=== PATIENT | male | born 1940 | race Caucasian/White ===

== ENCOUNTER 2016-08-09 07:11 | Outpatient (CLI) | payer MEDICARE ==
[2016-08-09 08:06] LABS: Anion Gap 19 mmol/L (10-20); BUN (Urea Nitrogen) 31 mg/dL (8.4-25.7); Calc. Creatinine Clearance 0 mL/min (70-130); Calcium 8.6 mg/dL (7.8-10.44); Carbon Dioxide 28 mmol/L (23-31); Chloride 94 mmol/L (98-107); Estimated GFR-MDRD 23; Glucose 121 mg/dL (83-110); Potassium 3.4 mmol/L (3.5-5.1); Sodium 138 mmol/L (136-145)
== END 2016-08-09 07:12 | disposition home or self-care (01) ==
LOC: MADLAB 07:11
PROVIDERS: ATTEND Internal Medicine Nephrology
DX: N18.3 Chronic kidney disease, stage 3 (moderate) (principal)
CPT/HCPCS: 36415; 80048

== ENCOUNTER 2016-08-19 08:00 | Outpatient (CLI) | payer MEDICARE ==
[2016-08-19 09:06] LABS: Anion Gap 13 mmol/L (10-20); BUN (Urea Nitrogen) 33 mg/dL (8.4-25.7); Calc. Creatinine Clearance 0 mL/min (70-130); Carbon Dioxide 34 mmol/L (23-31); Chloride 98 mmol/L (98-107); Estimated GFR-MDRD 32; Glucose 113 mg/dL (83-110); Potassium 4.1 mmol/L (3.5-5.1); Sodium 141 mmol/L (136-145)
== END 2016-08-19 08:01 | disposition home or self-care (01) ==
LOC: MADLAB 08:00
PROVIDERS: ATTEND Internal Medicine Nephrology
DX: N18.9 Chronic kidney disease, unspecified (principal)
CPT/HCPCS: 36415; 80048

== ENCOUNTER 2016-08-24 07:02 | Outpatient (CLI) | payer MEDICARE ==
[2016-08-24 07:24] LABS: #Basophils 0.1 thou/uL (0.0-0.2); #Eosinphils 0.3 thou/uL (0.0-0.7); #Lymphocytes 2.2 thou/uL (1.20-3.40); #Monocytes 1.3 thou/uL (0.11-0.59); #Neutrophils 5.6 thou/uL (1.40-6.50); %Basophils 1.2 % (0.0-1.0); %Eosinophils 2.7 % (0.0-10.0); %Lymphocytes 23.3 % (21.0-51.0); %Monocytes 13.5 % (0.0-10.0); %Neutrophils 59.3 % (42.0-75.0); Hemoglobin 12.5 g/dL (14.0-18.0); Mean Corpuscular HGB CONC 32.4 g/dL (32.0-36.0); Mean Corpuscular Hemoglobin 30.1 pg (27.0-31.0); Mean Platelet Volume 7.2 fL (7.4-10.4); Platelet Count 181 thou/uL (130-400); RBC Distribution Width 13.2 % (11.5-14.5); Red Blood Cell (RBC) Count 4.16 mill/uL (4.70-6.10); White Blood Cell (WBC) Count 9.4 thou/uL (4.8-10.8)
[2016-08-24 07:34] LABS: Hemoglobin A1c 6.7 % (4.0-6.0)
[2016-08-24 08:32] LABS: ALT (SGPT) 10 U/L (0-55); AST (SGOT) 14 U/L (5-34); Albumin 3.7 g/dL (3.4-4.8); Alkaline Phosphatase 97 U/L (40-150); Anion Gap 16 mmol/L (10-20); BUN (Urea Nitrogen) 30 mg/dL (8.4-25.7); Bilirubin, Direct 0.2 mg/dL (0.1-0.3); Bilirubin, Total 0.6 mg/dL (0.2-1.2); Calc. Creatinine Clearance 0 mL/min (70-130); Calcium 8.9 mg/dL (7.8-10.44); Carbon Dioxide 30 mmol/L (23-31); Cardiac Risk 3.6 (Less than 4.5); Chloride 97 mmol/L (98-107); Cholesterol 164 mg/dL (< 200 Desired); Estimated GFR-MDRD 35; Glucose 83 mg/dL (83-110); HDL Cholesterol 45 mg/dL (>60 Neg Risk); LDL Cholesterol, Calculated 100 mg/dL; Potassium 3.9 mmol/L (3.5-5.1); Protein, Total 6.7 g/dL (5.8-8.1); Sodium 139 mmol/L (136-145); Triglycerides 93 mg/dL (Less than 150)
== END 2016-08-24 07:03 ==
LOC: MADLABBHPM 07:02
PROVIDERS: ATTEND Internal Medicine Nephrology
DX: E11.9 Type 2 diabetes mellitus without complications (principal)
CPT/HCPCS: 36415; 80048; 80061; 80076; 83036; 85025

== ENCOUNTER 2016-10-31 11:36 | Emergency (ER) | payer MEDICARE ==
[~2016-10-31 11:36] MED LIST: Sodium Chloride 0.9% 1,000 ML BAG ONE
--- NOTE | 2016-10-31 12:43 | CT ---
NONCONTRAST CT OF THE BRAIN: Date: 10/31/16 INDICATION: Altered mental status. FINDINGS: There are prominent bilateral mastoid effusions. There is mild mucosal thickening within the ethmoid air cells. The skull is intact. No acute infarct, hemorrhage, or hydrocephalus is present. There i s mild generalized cerebral and cerebellar atrophy. There is a 1.3 cm extra-axial lesion overlying t he right frontal lobe which may reflect a noncalcified extra-axial meningioma. This does not have th e appearance of an extra-axial hemorrhage. IMPRESSION: 1. Bilateral mastoid effusions. 2. No acute intracranial abnormality. 3. Extra-axial soft tissue density overlying the right frontal lobe is suspicious for meningioma. F ollow-up MRI of the brain with and without contrast may be helpful for additional characterization. POS: [facility]
--- NOTE | 2016-10-31 12:44 | RAD ---
AP VIEW OF CHEST: Date: 10/31/16 INDICATION: Altered mental status. COMPARISON: Two views of chest dated 11/11/11. FINDINGS: There is stable cardiomegaly. There is partial visualized of ACDF of the lower cervical spine. Lungs are clear. No pleural effusion or pneumothorax evident. No acute osseous abnormality is evident. IMPRESSION: No acute abnormality. Stable cardiomegaly. POS: [facility]
--- NOTE | 2016-10-31 12:48 | RAD ---
3 VIEWS OF THE RIGHT KNEE: Date: 10/31/16 INDICATION: Postop knee. COMPARISON: None. FINDINGS: There is a right total knee prosthesis that projects in the expected position. There are surgical sk in jennifer overlying the anterior midline of the right knee. There are vascular calcifications in po sterior right knee. IMPRESSION: Right total knee prosthesis without overt evidence of complication. POS: [facility]
[2016-10-31 13:07] LABS: ALT (SGPT) 16 U/L (0-55); AST (SGOT) 18 U/L (5-34); Albumin 3.4 g/dL (3.4-4.8); Alkaline Phosphatase 86 U/L (40-150); Anion Gap 16 mmol/L (10-20); BUN (Urea Nitrogen) 54 mg/dL (8.4-25.7); Bilirubin, Total 0.7 mg/dL (0.2-1.2); Calc. Creatinine Clearance 0 mL/min (70-130); Calcium 8.6 mg/dL (7.8-10.44); Carbon Dioxide 26 mmol/L (23-31); Chloride 103 mmol/L (98-107); Estimated GFR-MDRD 13; Glucose 170 mg/dL (83-110); Potassium 4.8 mmol/L (3.5-5.1); Protein, Total 6.4 g/dL (5.8-8.1); Sodium 140 mmol/L (136-145)
[2016-10-31 13:09] LABS: CKMB 6.2 ng/mL (0-6.6); Troponin I Less than 0.010 ng/mL (< 0.028)
[2016-10-31 13:12] LABS: Band 1 % (5-11); Eosinophils 3 % (0-10); Hemoglobin 10.6 g/dL (14.0-18.0); Lymphocytes 18 % (21-51); MDiff Complete? YES; Mean Corpuscular HGB CONC 33.1 g/dL (32.0-36.0); Mean Corpuscular Hemoglobin 31.1 pg (27.0-31.0); Mean Corpuscular Volume 93.9 fl (80.0-94.0); Mean Platelet Volume 6.7 fL (7.4-10.4); Monocytes 16 % (0-10); Neutrophil 62 % (42-75); PLT Morphology Comment Appears Adequate; Platelet Count 297 thou/uL (130-400); RBC Distribution Width 13.5 % (11.5-14.5); White Blood Cell (WBC) Count 10.8 thou/uL (4.8-10.8)
== END 2016-10-31 14:22 | disposition short-term general hospital (02) ==
LOC: MADERS 11:36
DX: R41.82 Altered mental status, unspecified (principal); I12.9 Hypertensive chronic kidney disease with stage 1 through stage 4 chronic kidney disease, or unspecified chronic kidney disease; E11.22 Type 2 diabetes mellitus with diabetic chronic kidney disease; N18.3 Chronic kidney disease, stage 3 (moderate); N17.9 Acute kidney failure, unspecified; M19.90 Unspecified osteoarthritis, unspecified site; G89.29 Other chronic pain; E66.9 Obesity, unspecified; I25.10 Atherosclerotic heart disease of native coronary artery without angina pectoris; I48.91 Unspecified atrial fibrillation; E78.5 Hyperlipidemia, unspecified; J45.909 Unspecified asthma, uncomplicated; Z79.899 Other long term (current) drug therapy; Z79.891 Long term (current) use of opiate analgesic
CPT/HCPCS: 36415; 70450; 71010; 80053; 82553; 84484; 85025; 93005; 96360; J7050

== ENCOUNTER 2016-11-07 07:29 | Outpatient (CLI) | payer MEDICARE ==
[2016-11-07 08:45] LABS: Anion Gap 16 mmol/L (10-20); BUN (Urea Nitrogen) 23 mg/dL (8.4-25.7); Calc. Creatinine Clearance 0 mL/min (70-130); Calcium 8.7 mg/dL (7.8-10.44); Carbon Dioxide 28 mmol/L (23-31); Chloride 103 mmol/L (98-107); Estimated GFR-MDRD 41; Glucose 112 mg/dL (83-110); Potassium 4.1 mmol/L (3.5-5.1); Sodium 143 mmol/L (136-145)
== END 2016-11-07 07:30 | disposition home or self-care (01) ==
LOC: MADLAB 07:29
PROVIDERS: ATTEND Internal Medicine Nephrology
DX: N18.4 Chronic kidney disease, stage 4 (severe) (principal); D63.1 Anemia in chronic kidney disease; R80.9 Proteinuria, unspecified
CPT/HCPCS: 36415; 80048

== ENCOUNTER 2016-11-08 13:26 | Outpatient (CLI) | payer MEDICARE ==
[2016-11-08 13:41] LABS: Hemoglobin 10.7 g/dL (14.0-18.0)
[2016-11-08 17:31] LABS: Creatinine, Urine 92.94 mg/dL (63-166); Protein, Urine Random Quant Less than 10 mg/dL
== END 2016-11-08 13:27 | disposition home or self-care (01) ==
LOC: MADLAB 13:26
PROVIDERS: ATTEND Internal Medicine Nephrology
DX: N18.4 Chronic kidney disease, stage 4 (severe) (principal); D63.1 Anemia in chronic kidney disease; R80.9 Proteinuria, unspecified
CPT/HCPCS: 36415; 82570; 84156; 85014; 85018

== ENCOUNTER 2017-01-30 07:11 | Outpatient (CLI) | payer MEDICARE ==
[2017-01-30 07:49] LABS: Hemoglobin 12.3 g/dL (14.0-18.0); Mean Corpuscular HGB CONC 33.2 g/dL (32.0-36.0); Mean Corpuscular Hemoglobin 30.7 pg (27.0-31.0); Mean Corpuscular Volume 92.5 fl (80.0-94.0); Platelet Count 195 thou/uL (130-400); RBC Distribution Width 12.9 % (11.5-14.5); White Blood Cell (WBC) Count 7.9 thou/uL (4.8-10.8)
[2017-01-30 07:56] LABS: Anion Gap 13 mmol/L (10-20); BUN (Urea Nitrogen) 17 mg/dL (8.4-25.7); Calc. Creatinine Clearance 0 mL/min (70-130); Calcium 8.9 mg/dL (7.8-10.44); Carbon Dioxide 31 mmol/L (23-31); Chloride 98 mmol/L (98-107); Estimated GFR-MDRD 43; Glucose 159 mg/dL (83-110); Potassium 3.4 mmol/L (3.5-5.1); Sodium 139 mmol/L (136-145)
[2017-01-30 09:10] LABS: Band 6 % (5-11); Eosinophils 4 % (0-10); Lymphocytes 21 % (21-51); Metamyelocyte 2 % (0-0); Monocytes 4 % (0-10); Promyelocytes 1 % (0-0)
== END 2017-01-30 07:12 | disposition home or self-care (01) ==
LOC: MADLABBHPM 07:11
PROVIDERS: ATTEND Family Medicine
DX: I10 Essential (primary) hypertension (principal); D64.9 Anemia, unspecified
CPT/HCPCS: 36415; 80048; 85025

== ENCOUNTER 2017-11-22 12:27 | Inpatient (IN) | payer MEDICARE ==
[2017-11-27] MEDS ORDERED: Nitroglycerin 0.4 MG TAB (25 Tab Bottle) SL PRN (18:34)
[2017-11-27] MEDS ORDERED: Acetaminophen 325 MG TAB PO PRN (18:34)
[2017-11-27] MEDS ORDERED: Dextrose 5% in Water 1,000 ML IV PRN (18:38)
[2017-11-27] MEDS ORDERED: Dextrose 50% Abboject 50 ML SYRINGE SLOW IVP PRN (18:38)
[2017-11-27] MEDS: HYDROcodone/Acetaminophen 10/325 mg Tablet PO PRN (19:52)
[2017-11-27] MEDS: Gabapentin 300 MG CAP PO SCH (21:37)
[2017-11-27] MEDS: Flecainide 50 MG TAB PO SCH (21:38)
[2017-11-27] MEDS: Magnesium Oxide 400 MG TAB PO SCH (21:38)
[2017-11-27] MEDS: Atorvastatin Calcium 10 MG TAB PO SCH ×2 (21:40→21:54)
[2017-11-27] MEDS: HumaLOG 300 UNITS/3 ML VIAL SC PRN (21:43)
[2017-11-27] MEDS: Acetaminophen 325 MG TAB PO PRN (21:52)
--- NOTE | 2017-11-28 00:33 | HP ---
Admitted to [facility] on 11/27/2017. CHIEF COMPLAINT: Weakness. DATE OF ADMISSION: 11/27/2017 Admitted to [facility] on 11/27/2017. CHIEF COMPLAINT: Weakness. HISTORY OF PRESENT ILLNESS: The patient is a 77-year-old white male who has a history of type 2 diab etes, hypertension, coronary artery disease for which he has had stents and presently asymptomatic, o bstructive sleep apnea, venous insufficiency, chronic kidney disease, diabetic neuropathy, paroxysmal atrial fibrillation, and pacemaker insertion. He also has a history of severe spondylosis of his jason mbar spine, for which he has been on chronic pain medication. He has undergone a lumbar diskectomy i n 2009. He has also undergone numerous epidural steroid injections. Eventually, he has got where ey were no longer helping. He was doing reasonably well in controlling his pain with morphine extend ed release and occasional morphine immediate release for the pain. Recently, he had become progressi vely weaker in his legs and was falling. He says his legs would just give out with him. He was take n to the hospital at [facility] and admitted there on 11/17/2017 for another fall and weakness in his legs. His said he had fallen and he just could not move his legs. At the [facility], he was evaluated and initially underwent CT scan of the spine, which showed spondylos is of the spine with probable central stenosis. He later underwent myelogram of the spine. The CT m yelogram of the cervical spine done on 11/23/2017 showed cervical spondylosis, multilevel degenerativ e disk disease, and facet osteoarthritis. He had had a previous anterior cervical diskectomy and fus ion at C5, C6, and C7. He had central disk herniation at C4-C5 with some displacement of the spinal cord. The thoracic CT myelogram showed no significant spinal stenosis. The lumbar CT myelogram show ed severe central spinal canal stenosis, particularly at L3-L4. There was also moderate neural paulina inal stenosis bilaterally at L3-L4, L4-L5, and L5-S1. The patient was seen in consultation by Dr. Lindy Abad, neurosurgeon, who felt like that the weakness in his legs and the falls were seconda ry to his severe L3-L4 spinal stenosis. After discussion with the patient and his agreement, the pat ient underwent a spinal decompression at the L3-L4 level with a complete laminectomy done on 11/25/19. The patient's postop course was unremarkable and he has been doing better since the surgery. He has not get up and walk much. He says his pain has been pretty reasonably controlled. During his h ospitalization, he did have some decline in his renal function that improved. The patient was transf erred to [facility] to extended care for Physical Therapy and Occupational Therapy on the late afternoon of 11/27/2017. I was able to interview the patient that afternoon and he was able to give me a good history of what has happened. He says his legs are not numb, his legs are not hurting. He has some pain in the back, but it is controllable. His extended-release morphine has been stopped a nd he has been given Tylenol and hydrocodone with acetaminophen 10/325 to use one every 6 hours for p ain, and also was given Zanaflex 4 mg to use every 6 hours if needed for pain. PAST MEDICAL HISTORY: Coronary artery disease, the patient underwent heart catheterization in 2005 a nd again in 2011. He has had a history of LAD blockage 100%, RCA blockage at 40%. The patient had a stent to the RCA in 12/2011. He was re-studied and had triple-vessel disease. He had a stent place d in the proximal and mid RCA, stent placed to the distal RCA. Repeat catheterization in 09/2014 pierre wed patent stents to the RCA. The patient has been asymptomatic in regard to his coronary artery dis ease. The patient has renal artery stenosis and chronic kidney disease, stage 3. The patient has pa roxysmal atrial fibrillation for which he has been on sotalol and Xarelto. The patient's left ventri cular function has been normal. He has hyperlipidemia, hypertension, sleep apnea. The patient is un able to tolerate CPAP and uses O2 by nasal cannula at night. He has severe generalized osteoarthriti s, diabetes type 2 that is controlled. The patient has a history of asbestos exposure; cervical spon dylosis with cervical radiculopathy for which he underwent an anterior diskectomy at the C5, C6, and C7 levels and fusion in 2005; left total knee replacement in 2014; right total knee replacement in ; bilateral inguinal hernia repairs; colonoscopy in 2009 that was normal. PRESENT MEDICATIONS: Acarbose 25 mg before meals; acetaminophen 325 mg two every 4 hours as needed; furosemide 40 mg daily; insulin lispro by sliding scale, 1 unit for glucose greater than 150, 3 units for glucose greater than 200, 5 units for glucose greater than 250, 7 units if glucose greater than 300, 8 units for glucose greater than 349; gabapentin 600 mg t.i.d.; glipizide 5 mg b.i.d.; isosorbid e mononitrate 10 mg daily; flecainide 100 mg b.i.d.; folic acid 1 daily; magnesium oxide 400 mg at be dtime; metoprolol succinate SR 100 mg daily; nitroglycerin sublingual 0.4 mg p.r.n. chest pain; prava statin 40 mg daily; Ranexa 500 mg b.i.d.; Victoza 18 mg daily subcutaneously; vitamin D 1000 units da jones; valsartan 40 mg daily. The patient was on morphine extended release, which has been stopped; an d morphine IR, which has been stopped. ALLERGIES: No known allergies. REVIEW OF SYSTEMS: The patient said he has not had any fever. He has had no recent weight gain or l oss. Head and Neck: No complaints. Pulmonary: No shortness of breath. Cardiovascular: The patie nt said he has had no chest pain. At times, he has just a little soreness in his chest that he think s just from the muscles. Gastrointestinal: No nausea or vomiting. His bowels are working well. Ge nitourinary: No complaint. Musculoskeletal: The patient denies any other weakness in his leg. He can move these better, but has not been up much or walking much. He denies any numbness. HABITS: Alcohol, none. Tobacco, the patient smoked years ago, but has stopped. SOCIAL HISTORY: The patient is and lives with his . REVIEW OF ADL: Prior to this hospitalization, he had been independent of his ADLs and instrumental A DLs. CODE STATUS: FULL CODE. PHYSICAL EXAMINATION: GENERAL: A pleasant 77-year-old white male who is awake, alert, oriented x3, and appears comfortable in no distress. His height is 71 inches. His weight is 309. VITAL SIGNS: Temperature 97.5, pulse 60, respirations 24, O2 sat 93% on 2 liters, blood pressure 159 /69. HEAD: Normocephalic. EYES: Pupils are equal, round, and reactive. EARS: TMs are clear. NOSE: Normal. MOUTH AND THROAT: Normal. NECK: Carotids are equal and strong. No bruits. LUNGS: Clear. HEART: Regular rate. No murmurs. ABDOMEN: Obese. There is no organomegaly nor areas of tenderness. BACK: The patient has an incision that is well approximated with jennifer in the midline of the lumba r spine. There is no drainage or surrounding redness. EXTREMITIES: There is 1+ edema of the lower extremities. The patient can move his legs, move his fe et, and can feel light touch. NEUROLOGIC: The patient is alert, oriented x3 with generalized weakness, but no focal weakness. IMPRESSION: 1. Generalized weakness and deconditioning. A. Complicated by recent frequent falls secondary to a severe spinal stenosis at L3-L4 level for whi ch he underwent a complete laminectomy at the L3-L4 level on 11/24/2017. 2. Severe spinal stenosis of the L3-L4 level. A. Presenting with increased weakness in the lower extremities and frequent falls. B. Status post complete laminectomy at the L3-L4 level by Dr. Leander Abad, neurosurgeon, on . 3. Coronary artery disease. A. History of multiple stents. B. Last heart catheterization in 09/2014 showed patent stents to the RCA. C. Presently asymptomatic. 4. Diabetes type 2, controlled. A. Hemoglobin A1c of 6.9 on 10/09/2017. 5. Hypertension. 6. Generalized osteoarthritis. A. Status post left total knee replacement, 06/2015. B. Status post right total knee replacement, 11/2016. 7. Severe venous insufficiency of the lower extremity. 8. Paroxysmal atrial fibrillation. A. On chronic anticoagulation. 9. Status post pacemaker insertion for bradycardia. 10. Obesity. 11. Renal artery stenosis. 12. History of diastolic dysfunction. 13. Chronic kidney disease. 14. Obstructive sleep apnea. A. Intolerant of CPAP. He uses O2 at nighttime. PLAN: The patient has been admitted to [facility] to extended care for physical therapy and oc cupational therapy with hope that with these efforts that his functional level will gradually improve such that he can return home. We will continue his routine medications. See orders. CODE STATUS: FULL CODE.
[2017-11-28] MEDS: HYDROcodone/Acetaminophen 10/325 mg Tablet PO PRN ×3 (03:36→18:03)
[2017-11-28] MEDS: Acetaminophen 325 MG TAB PO PRN ×3 (03:38→18:03)
[2017-11-28 07:13] LABS: #Basophils 0.1 thou/uL (0.0-0.2); #Eosinphils 0.3 thou/uL (0.0-0.7); #Lymphocytes 1.2 thou/uL (1.20-3.40); #Neutrophils 6.5 thou/uL (1.40-6.50); %Basophils 0.9 % (0.0-1.0); %Eosinophils 3.2 % (0.0-10.0); %Monocytes 11.2 % (0.0-10.0); %Neutrophils 71.7 % (42.0-75.0); Mean Corpuscular Hemoglobin 29.2 pg (27.0-31.0); Mean Corpuscular Volume 91.3 fl (80.0-94.0); Mean Platelet Volume 5.9 fL (7.4-10.4); Platelet Count 175 thou/uL (130-400); RBC Distribution Width 12.7 % (11.5-14.5); Red Blood Cell (RBC) Count 3.44 mill/uL (4.70-6.10)
[2017-11-28] MEDS: HumaLOG 300 UNITS/3 ML VIAL SC PRN ×3 (07:25→16:38)
[2017-11-28] MEDS: glipiZIDE 5 MG TAB PO SCH ×2 (07:25→16:37)
[2017-11-28 08:18] LABS: ALT (SGPT) 19 U/L (8-55); AST (SGOT) 24 U/L (5-34); Albumin 2.8 g/dL (3.4-4.8); Alkaline Phosphatase 94 U/L (40-150); Anion Gap 14 mmol/L (10-20); BUN (Urea Nitrogen) 22 mg/dL (8.4-25.7); Bilirubin, Total 0.5 mg/dL (0.2-1.2); Calc. Creatinine Clearance 85 mL/min (70-130); Calcium 8.2 mg/dL (7.8-10.44); Carbon Dioxide 25 mmol/L (23-31); Chloride 103 mmol/L (98-107); Estimated GFR-MDRD 47; Glucose 141 mg/dL (83-110); Potassium 4.6 mmol/L (3.5-5.1); Protein, Total 5.8 g/dL (5.8-8.1); Sodium 137 mmol/L (136-145)
[2017-11-28] MEDS: Gabapentin 300 MG CAP PO SCH ×3 (08:41→20:42)
[2017-11-28] MEDS: Folic Acid 1 MG TAB PO SCH (08:41)
[2017-11-28] MEDS: Valsartan 80 MG TAB PO SCH (08:42)
[2017-11-28] MEDS: Flecainide 50 MG TAB PO SCH ×2 (08:43→20:43)
[2017-11-28] MEDS: Isosorbide Mononitrate 20 MG TAB PO SCH (08:43)
--- NOTE | 2017-11-28 10:52 | PRG ---
DATE OF SERVICE: 11/28/2017 SUBJECTIVE: The patient said he is feeling pretty good today. He has pain in the back from the surg kait, but otherwise he is doing well. He slept in a lounge chair which he does at home. He said he h ad a good night. He is not having any difficulty breathing. No fever. His is bringing 2 of hi s diabetic medicines from home, that is the Acarbose and the Victoza which will be started when these are brought up to the hospital. OBJECTIVE: The patient is lying in his lounge chair with the head elevated, the feet elevated. He l ooks very comfortable, he is talkative and appears in no distress. Vital signs show a temperature 97 .9, pulse 61, respirations 24, O2 sat 99% on room air, blood pressure 145/67. Lungs are clear. Hear t, regular rate. Extremities have just 1+ edema, less than yesterday. Overall, the legs look better . His lab shows an H&H of 10 and 31.4, WBC count 9000 with 72% segs, 13% lymphocytes, and platelet c ount of 175,000. His chemistries are pending. ASSESSMENT: 1. Generalized weakness and deconditioning. A. Complicated by recent frequent falls secondary to a severe spinal stenosis at L3-L4 level for whi ch he underwent a complete laminectomy at the L3-L4 level on 11/24/2017. B. Physical therapist will begin working with him and anticipate that he will begin standing and wal emmanuel some as of 11/28/2017. 2. Severe spinal stenosis of the L3-L4 level. A. Presenting with increased weakness in the lower extremities and frequent falls. B. Status post complete laminectomy at the L3-L4 level by Dr. Leander Abad, neurosurgeon, on . 1. Doing well on his fourth postop day. 3. Coronary artery disease. A. History of multiple stents. B. Last heart catheterization in 09/2014 showed patent stents to the RCA. C. Presently asymptomatic. 4. Diabetes type 2, controlled. A. Hemoglobin A1c of 6.9 on 10/09/2017. 5. Hypertension. 6. Generalized osteoarthritis. A. Status post left total knee replacement, 06/2015. B. Status post right total knee replacement, 11/2016. 7. Severe venous insufficiency of the lower extremity. A. Improved as of 11/28/2017. 8. Paroxysmal atrial fibrillation. A. On chronic anticoagulation. 9. Status post pacemaker insertion for bradycardia. 10. Obesity. 11. Renal artery stenosis. 12. History of diastolic dysfunction. 13. Chronic kidney disease. 14. Obstructive sleep apnea. A. Intolerant of CPAP. He uses O2 at nighttime. PLAN: Continue present care. The patient will start the Acarbose and the Victoza that he uses at [facility]. Physical therapy will begin working with him.
[2017-11-28] MEDS: Furosemide 20 MG TAB PO SCH (11:21)
[2017-11-28] MEDS: Rivaroxaban 10 MG TAB PO SCH (16:37)
[2017-11-28] MEDS ORDERED: Rivaroxaban 10 MG TAB PO SCH (16:45)
[2017-11-28] MEDS: Magnesium Oxide 400 MG TAB PO SCH (20:43)
[2017-11-28] MEDS: Atorvastatin Calcium 10 MG TAB PO SCH (20:44)
[2017-11-29] MEDS: Acetaminophen 325 MG TAB PO PRN ×4 (02:18→20:38)
[2017-11-29] MEDS: HYDROcodone/Acetaminophen 10/325 mg Tablet PO PRN ×3 (02:18→16:35)
[2017-11-29] MEDS: glipiZIDE 5 MG TAB PO SCH ×2 (07:07→16:35)
[2017-11-29] MEDS: HumaLOG 300 UNITS/3 ML VIAL SC PRN ×3 (07:45→21:02)
[2017-11-29] MEDS: Gabapentin 300 MG CAP PO SCH ×3 (07:48→20:37)
[2017-11-29] MEDS: Isosorbide Mononitrate 20 MG TAB PO SCH (07:49)
[2017-11-29] MEDS: Valsartan 80 MG TAB PO SCH (07:49)
[2017-11-29] MEDS: Flecainide 50 MG TAB PO SCH ×2 (07:50→20:39)
[2017-11-29] MEDS: Folic Acid 1 MG TAB PO SCH (07:50)
--- NOTE | 2017-11-29 09:15 | PRG ---
DATE OF SERVICE: 11/29/2017 SUBJECTIVE: The patient said he is feeling better today. He had a good night. He is doing better w ith his walking. He has not had his legs give out on him. Overall, he is feeling better. His Victo za was stopped. At home he was using this intermittently and would change the dose according to his s ugars. Right now he has the sliding scale if needed. The patient said the swelling in his leg is be tter. He presently is on the gabapentin 600 mg t.i.d. for peripheral neuropathy. This had been incr eased by his neurologist, Dr. Lin, to 900 mg t.i.d., but right now is just trying the 600 since t his may have been contributing to the swelling in his legs. OBJECTIVE: The patient is sitting up on the edge of the bed with his feet on the floor. He looks ve ry comfortable. He said his back is feeling better. He appears in no distress. His vital signs pierre w a temperature 97.3, pulse 60, respirations 20, O2 saturation 97% on 2 liters, blood pressure that w as last evening. On the morning of 11/29/2017 his O2 sat is 97% on room air, blood pressure is 132/7 3. His lungs were clear. Heart, regular rate. Extremities have trace edema. His fasting blood sug ar yesterday morning 141, at bedtime it was 197, before supper 153. This morning's is pending. ASSESSMENT: 1. Generalized weakness and deconditioning. A. Complicated by recent frequent falls secondary to a severe spinal stenosis at L3-L4 level for whi ch he underwent a complete laminectomy at the L3-L4 level on 11/24/2017. B. Improved. Walking a little with a rolling walker and assistance as of 11/29/2017. 2. Severe spinal stenosis of the L3-L4 level. A. Presenting with increased weakness in the lower extremities and frequent falls. B. Status post complete laminectomy at the L3-L4 level by Dr. Leander Abad, neurosurgeon, on . 1. Doing excellent on the 5th postop day. 3. Coronary artery disease. A. History of multiple stents. B. Last heart catheterization in 09/2014 showed patent stents to the RCA. C. Presently asymptomatic. 4. Diabetes type 2, controlled. A. Hemoglobin A1c of 6.9 on 10/09/2017. 5. Hypertension. 6. Generalized osteoarthritis. A. Status post left total knee replacement, 06/2015. B. Status post right total knee replacement, 11/2016. 7. Severe venous insufficiency of the lower extremity. A. Improved as of 11/29/2017. 8. Paroxysmal atrial fibrillation. A. On chronic anticoagulation. 9. Status post pacemaker insertion for bradycardia. 10. Obesity. 11. Renal artery stenosis. 12. History of diastolic dysfunction. 13. Chronic kidney disease. 14. Obstructive sleep apnea. A. Intolerant of CPAP. He uses O2 at nighttime. PLAN: Overall the patient looks better. Will continue his present care.
[2017-11-29] MEDS: Furosemide 20 MG TAB PO SCH (11:51)
[2017-11-29] MEDS: Rivaroxaban 10 MG TAB PO SCH (16:36)
[2017-11-29] MEDS: Magnesium Oxide 400 MG TAB PO SCH (20:37)
[2017-11-29] MEDS: Atorvastatin Calcium 10 MG TAB PO SCH (20:38)
[2017-11-29] MEDS: tiZANidine HCl 4 MG TAB PO PRN (20:44)
[2017-11-30] MEDS: HYDROcodone/Acetaminophen 10/325 mg Tablet PO PRN ×4 (05:51→23:05)
[2017-11-30] MEDS: Acetaminophen 325 MG TAB PO PRN ×4 (05:51→21:00)
[2017-11-30] MEDS: glipiZIDE 5 MG TAB PO SCH ×2 (07:31→16:42)
[2017-11-30] MEDS: Isosorbide Mononitrate 20 MG TAB PO SCH (08:26)
[2017-11-30] MEDS: Flecainide 50 MG TAB PO SCH ×2 (08:27→20:23)
[2017-11-30] MEDS: Valsartan 80 MG TAB PO SCH (08:27)
[2017-11-30] MEDS: Gabapentin 300 MG CAP PO SCH ×3 (08:27→20:24)
[2017-11-30] MEDS: Folic Acid 1 MG TAB PO SCH (08:28)
[2017-11-30] MEDS: Furosemide 20 MG TAB PO SCH (11:29)
[2017-11-30] MEDS: HumaLOG 300 UNITS/3 ML VIAL SC PRN ×2 (11:29→21:00)
[2017-11-30] MEDS: Rivaroxaban 10 MG TAB PO SCH (16:42)
[2017-11-30] MEDS: Magnesium Oxide 400 MG TAB PO SCH (20:23)
[2017-11-30] MEDS: Atorvastatin Calcium 10 MG TAB PO SCH (20:24)
[2017-11-30] MEDS: tiZANidine HCl 4 MG TAB PO PRN (21:00)
[2017-12-01 05:40] LABS: Hemoglobin 9.7 g/dL (14.0-18.0); Platelet Count 211 thou/uL (130-400)
[2017-12-01] MEDS: HYDROcodone/Acetaminophen 10/325 mg Tablet PO PRN ×4 (06:34→23:20)
[2017-12-01] MEDS: Acetaminophen 325 MG TAB PO PRN ×4 (06:36→23:20)
[2017-12-01] MEDS: glipiZIDE 5 MG TAB PO SCH ×2 (09:09→16:03)
[2017-12-01] MEDS: Flecainide 50 MG TAB PO SCH ×2 (09:10→20:42)
[2017-12-01] MEDS: Gabapentin 300 MG CAP PO SCH ×3 (09:10→20:42)
[2017-12-01] MEDS: Folic Acid 1 MG TAB PO SCH (09:10)
[2017-12-01] MEDS: Valsartan 80 MG TAB PO SCH (09:11)
[2017-12-01] MEDS: Isosorbide Mononitrate 20 MG TAB PO SCH (09:11)
[2017-12-01] MEDS: tiZANidine HCl 4 MG TAB PO PRN (11:42)
[2017-12-01] MEDS: Furosemide 20 MG TAB PO SCH (11:42)
[2017-12-01] MEDS: HumaLOG 300 UNITS/3 ML VIAL SC PRN ×2 (11:46→20:41)
[2017-12-01] MEDS: Rivaroxaban 10 MG TAB PO SCH (16:03)
[2017-12-01] MEDS: Atorvastatin Calcium 10 MG TAB PO SCH (20:42)
[2017-12-01] MEDS: Magnesium Oxide 400 MG TAB PO SCH (20:43)
[2017-12-02] MEDS: HYDROcodone/Acetaminophen 10/325 mg Tablet PO PRN ×3 (06:15→20:05)
[2017-12-02] MEDS: Acetaminophen 325 MG TAB PO PRN ×3 (06:16→20:05)
[2017-12-02] MEDS: HumaLOG 300 UNITS/3 ML VIAL SC PRN ×2 (07:45→16:15)
[2017-12-02] MEDS: glipiZIDE 5 MG TAB PO SCH ×2 (07:46→16:15)
[2017-12-02] MEDS: Flecainide 50 MG TAB PO SCH ×2 (08:34→20:04)
[2017-12-02] MEDS: Folic Acid 1 MG TAB PO SCH (08:35)
[2017-12-02] MEDS: Isosorbide Mononitrate 20 MG TAB PO SCH (08:35)
[2017-12-02] MEDS: Gabapentin 300 MG CAP PO SCH ×3 (08:36→20:04)
[2017-12-02] MEDS: Valsartan 80 MG TAB PO SCH (08:37)
--- NOTE | 2017-12-02 11:19 | PRG ---
DATE OF SERVICE: 12/01/2017 SUBJECTIVE: The patient said he is doing much better. He said his strength is much improved. He is walking further. He is working out on the Nu[employer]. His legs feel much stronger and he has had no we akness or sensation of legs given out or falling. The patient wants to get up on his own ad negar. [facility] therapist thinks he will be fine to do this. OBJECTIVE: The patient is alert and in very good spirits, appears very comfortable and in no distres s. Vital signs show a temperature 97.5, pulse 66, respirations 18, O2 sat 96% on room air, blood pre ssure 140/67. Lungs are clear. Heart, regular rate. Extremities: 1+ edema bilateral. H&H 97 and 29.5, BUN 146, GFR 47. FBS this morning 147. ASSESSMENT: 1. Generalized weakness and deconditioning. A. Complicated by recent frequent falls secondary to a severe spinal stenosis at L3-L4 level for whi ch he underwent a complete laminectomy at the L3-L4 level on 11/24/2017. B. Marked improvement, excellent strength in his leg with no sensation of falling, transferring ind ependently. 2. Severe spinal stenosis of the L3-L4 level. A. Presenting with increased weakness in the lower extremities and frequent falls. B. Status post complete laminectomy at the L3-L4 level by Dr. Leander Abad, neurosurgeon, on . 1. Doing excellent as of 12/01/2017. 3. Coronary artery disease. A. History of multiple stents. B. Last heart catheterization in 09/2014 showed patent stents to the RCA. C. Presently asymptomatic. 4. Diabetes type 2, controlled. A. Hemoglobin A1c of 6.9 on 10/09/2017. 5. Hypertension. 6. Generalized osteoarthritis. A. Status post left total knee replacement, 06/2015. B. Status post right total knee replacement, 11/2016. 7. Severe venous insufficiency of the lower extremity. A. Gradual improvement, but not resolved as of 12/01/2017. 8. Paroxysmal atrial fibrillation. A. On chronic anticoagulation. 9. Status post pacemaker insertion for bradycardia. 10. Obesity. 11. Renal artery stenosis. 12. History of diastolic dysfunction. 13. Chronic kidney disease. 14. Obstructive sleep apnea. A. Intolerant of CPAP. He uses O2 at nighttime. PLAN: Continue present care. Continue physical therapy. The patient may get up ad negar.
[2017-12-02] MEDS: Furosemide 20 MG TAB PO SCH (12:54)
[2017-12-02] MEDS: Rivaroxaban 10 MG TAB PO SCH (16:14)
[2017-12-02] MEDS: Magnesium Oxide 400 MG TAB PO SCH (20:05)
[2017-12-03] MEDS: Acetaminophen 325 MG TAB PO PRN ×4 (02:00→21:20)
[2017-12-03] MEDS: HYDROcodone/Acetaminophen 10/325 mg Tablet PO PRN ×4 (02:01→21:20)
[2017-12-03 05:42] LABS: Hemoglobin 10.2 g/dL (14.0-18.0); Platelet Count 237 thou/uL (130-400)
[2017-12-03] MEDS: glipiZIDE 5 MG TAB PO SCH ×2 (08:00→16:47)
[2017-12-03] MEDS: Flecainide 50 MG TAB PO SCH ×2 (09:15→20:17)
[2017-12-03] MEDS: Folic Acid 1 MG TAB PO SCH (09:16)
[2017-12-03] MEDS: Gabapentin 300 MG CAP PO SCH ×3 (09:16→20:17)
[2017-12-03] MEDS: Isosorbide Mononitrate 20 MG TAB PO SCH (09:17)
[2017-12-03] MEDS: Valsartan 80 MG TAB PO SCH (09:19)
[2017-12-03] MEDS: Furosemide 20 MG TAB PO SCH (11:27)
[2017-12-03] MEDS: HumaLOG 300 UNITS/3 ML VIAL SC PRN ×2 (11:27→16:48)
[2017-12-03] MEDS ORDERED: Sodium Chloride Irrig Solution 250 ML BOT ONE (12:00)
[2017-12-03] MEDS: Rivaroxaban 10 MG TAB PO SCH (16:47)
[2017-12-03] MEDS: Magnesium Oxide 400 MG TAB PO SCH (20:18)
[2017-12-04] MEDS: HYDROcodone/Acetaminophen 10/325 mg Tablet PO PRN ×4 (03:24→21:36)
[2017-12-04] MEDS: Acetaminophen 325 MG TAB PO PRN ×4 (03:24→21:36)
[2017-12-04] MEDS: glipiZIDE 5 MG TAB PO SCH ×2 (07:32→16:24)
[2017-12-04] MEDS: Isosorbide Mononitrate 20 MG TAB PO SCH (09:00)
[2017-12-04] MEDS: Flecainide 50 MG TAB PO SCH ×2 (09:00→21:35)
[2017-12-04] MEDS: Folic Acid 1 MG TAB PO SCH (09:00)
[2017-12-04] MEDS: Gabapentin 300 MG CAP PO SCH ×3 (09:01→21:36)
[2017-12-04] MEDS: Valsartan 80 MG TAB PO SCH (09:02)
[2017-12-04] MEDS ORDERED: Polyethylene Glycol 3350 17 GM Packet PO SCH (10:15)
[2017-12-04] MEDS: HumaLOG 300 UNITS/3 ML VIAL SC PRN ×2 (11:29→17:05)
[2017-12-04] MEDS: Furosemide 20 MG TAB PO SCH (11:53)
--- NOTE | 2017-12-04 15:51 | PRG ---
DATE OF SERVICE: 12/04/2017 SUBJECTIVE: The patient said he is feeling better. His back is feeling better. His legs, the stren gth is improved. He has had no sensation of the legs giving out and no falls. He says he still has swelling in the legs. OBJECTIVE: The patient is sitting up in a chair. He is alert, looks very comfortable and interactiv e and in no distress. His vital signs shows a temperature 96.7, respirations 20, pulse 60, O2 sat 10 0% on 2 liters, blood pressure 156/71. Lungs are clear. Heart, regular rate, extremities, 1+ edema bilateral, and a dressing over his low back is dry. Yesterday, H&H was 10.2 and 30.9, platelet count 237,000. FBS this morning 149. ASSESSMENT: 1. Generalized weakness and deconditioning. A. Complicated by recent frequent falls secondary to a severe spinal stenosis at L3-L4 level for whi ch he underwent a complete laminectomy at the L3-L4 level on 11/24/2017. B. Continued improvement. Walking better. Transferring independently as of 12/04/2017. 2. Severe spinal stenosis of the L3-L4 level. A. Presenting with increased weakness in the lower extremities and frequent falls. B. Status post complete laminectomy at the L3-L4 level by Dr. Leander Abad, neurosurgeon, on . 1. Doing excellent as of 12/04/2017. 3. Coronary artery disease. A. History of multiple stents. B. Last heart catheterization in 09/2014 showed patent stents to the RCA. C. Presently asymptomatic. 4. Diabetes type 2, controlled. A. Hemoglobin A1c of 6.9 on 10/09/2017. 5. Hypertension. 6. Generalized osteoarthritis. A. Status post left total knee replacement, 06/2015. B. Status post right total knee replacement, 11/2016. 7. Severe venous insufficiency of the lower extremity. A. Gradual improvement, but not resolved as of 12/01/2017. 8. Paroxysmal atrial fibrillation. A. On chronic anticoagulation. 9. Status post pacemaker insertion for bradycardia. 10. Obesity. 11. Renal artery stenosis. 12. History of diastolic dysfunction. A. No evidence of acute congestive heart failure as of 12/04/2017. 13. Chronic kidney disease. 14. Obstructive sleep apnea. A. Intolerant of CPAP. He uses O2 at nighttime. PLAN: Continue present care.
[2017-12-04] MEDS: Rivaroxaban 10 MG TAB PO SCH (16:24)
[2017-12-04] MEDS: Magnesium Oxide 400 MG TAB PO SCH (21:36)
[2017-12-05] MEDS: HYDROcodone/Acetaminophen 10/325 mg Tablet PO PRN ×4 (03:58→21:39)
[2017-12-05] MEDS: Acetaminophen 325 MG TAB PO PRN ×3 (03:59→15:42)
[2017-12-05 05:03] LABS: Hemoglobin 9.9 g/dL (14.0-18.0); Platelet Count 225 thou/uL (130-400)
[2017-12-05] MEDS: glipiZIDE 5 MG TAB PO SCH ×2 (07:38→15:43)
[2017-12-05] MEDS: HumaLOG 300 UNITS/3 ML VIAL SC PRN ×3 (07:38→16:30)
[2017-12-05] MEDS: Folic Acid 1 MG TAB PO SCH (08:51)
[2017-12-05] MEDS: Flecainide 50 MG TAB PO SCH ×2 (08:51→21:09)
[2017-12-05] MEDS: Gabapentin 300 MG CAP PO SCH ×3 (08:52→21:10)
[2017-12-05] MEDS: Valsartan 80 MG TAB PO SCH (08:53)
[2017-12-05] MEDS: Isosorbide Mononitrate 20 MG TAB PO SCH (08:53)
[2017-12-05] MEDS: Polyethylene Glycol 3350 17 GM Packet PO SCH ×2 (08:53→08:55)
[2017-12-05] MEDS: Furosemide 20 MG TAB PO SCH (11:41)
[2017-12-05] MEDS: Rivaroxaban 10 MG TAB PO SCH (16:31)
[2017-12-05 18:38] VITALS: BMI 43.0
[2017-12-05] MEDS: Magnesium Oxide 400 MG TAB PO SCH (21:10)
[2017-12-06] MEDS: HYDROcodone/Acetaminophen 10/325 mg Tablet PO PRN ×4 (03:38→21:36)
[2017-12-06] MEDS: Acetaminophen 325 MG TAB PO PRN ×4 (03:38→21:36)
[2017-12-06] MEDS: Valsartan 80 MG TAB PO SCH (08:03)
[2017-12-06] MEDS: glipiZIDE 5 MG TAB PO SCH ×2 (08:03→15:43)
[2017-12-06] MEDS: Flecainide 50 MG TAB PO SCH ×2 (08:04→21:35)
[2017-12-06] MEDS: Folic Acid 1 MG TAB PO SCH (08:04)
[2017-12-06] MEDS: Gabapentin 300 MG CAP PO SCH ×3 (08:04→21:35)
[2017-12-06] MEDS: Isosorbide Mononitrate 20 MG TAB PO SCH (08:04)
[2017-12-06] MEDS: Polyethylene Glycol 3350 17 GM Packet PO SCH (08:05)
--- NOTE | 2017-12-06 10:37 | PRG ---
DATE OF SERVICE: 12/06/2017 SUBJECTIVE: The patient said he is doing much better. He is walking further. He is transferring ea . Overall, he is making excellent progress. He is due to see Dr. Abad tomorrow afternoon for recheck of his wound and how he is doing. OBJECTIVE: The patient is sitting on the edge of the bed, alert, talkative, appears very comfortable in no distress. His temperature is 97.5, pulse 60, respirations 22, O2 sat 95% on 2 liters, blood p ressure 174/75, earlier 161/55. Lungs are clear. Heart, regular rate. Extremities have trace edema in the lower extremities. His FBS this morning 141. ASSESSMENT: 1. Generalized weakness and deconditioning. A. Complicated by recent frequent falls secondary to a severe spinal stenosis at L3-L4 level for whi ch he underwent a complete laminectomy at the L3-L4 level on 11/24/2017. B. Continued improvement. Walking better. Transferring independently as of 12/06/2017. 2. Severe spinal stenosis of the L3-L4 level. A. Presenting with increased weakness in the lower extremities and frequent falls. B. Status post complete laminectomy at the L3-L4 level by Dr. Leander Abad, neurosurgeon, on . 1. Doing excellent as of 12/06/2017. 3. Coronary artery disease. A. History of multiple stents. B. Last heart catheterization in 09/2014 showed patent stents to the RCA. C. Presently asymptomatic. 4. Diabetes type 2, controlled. A. Hemoglobin A1c of 6.9 on 10/09/2017. 5. Hypertension. 6. Generalized osteoarthritis. A. Status post left total knee replacement, 06/2015. B. Status post right total knee replacement, 11/2016. 7. Severe venous insufficiency of the lower extremity. A. Gradual improvement, but not resolved as of 12/01/2017. 8. Paroxysmal atrial fibrillation. A. On chronic anticoagulation. 9. Status post pacemaker insertion for bradycardia. 10. Obesity. 11. Renal artery stenosis. 12. History of diastolic dysfunction. A. No evidence of acute congestive heart failure as of 12/04/2017. 13. Chronic kidney disease. 14. Obstructive sleep apnea. A. Intolerant of CPAP. He uses O2 at nighttime. PLAN: Continue present care. Continue physical therapy. The patient will be given a pass tomorrow 12/07/2017 to see his neurosurgeon. Anticipate probable discharge on 12/08/2017.
[2017-12-06] MEDS: HumaLOG 300 UNITS/3 ML VIAL SC PRN (11:53)
[2017-12-06] MEDS: Furosemide 20 MG TAB PO SCH (12:00)
[2017-12-06] MEDS: Rivaroxaban 10 MG TAB PO SCH (15:43)
[2017-12-06] MEDS: Magnesium Oxide 400 MG TAB PO SCH (21:35)
[2017-12-07] MEDS: HYDROcodone/Acetaminophen 10/325 mg Tablet PO PRN ×3 (03:38→18:58)
[2017-12-07] MEDS: Acetaminophen 325 MG TAB PO PRN ×3 (03:38→18:59)
[2017-12-07 05:25] LABS: Hemoglobin 10.2 g/dL (14.0-18.0); Platelet Count 238 thou/uL (130-400)
[2017-12-07] MEDS: Gabapentin 300 MG CAP PO SCH ×3 (08:25→21:00)
[2017-12-07] MEDS: Folic Acid 1 MG TAB PO SCH (08:25)
[2017-12-07] MEDS: Polyethylene Glycol 3350 17 GM Packet PO SCH (08:26)
[2017-12-07] MEDS: Flecainide 50 MG TAB PO SCH ×2 (08:26→21:01)
[2017-12-07] MEDS: Valsartan 80 MG TAB PO SCH (08:26)
[2017-12-07] MEDS: glipiZIDE 5 MG TAB PO SCH ×2 (08:27→18:38)
[2017-12-07] MEDS: Isosorbide Mononitrate 20 MG TAB PO SCH (08:27)
[2017-12-07] MEDS: Furosemide 20 MG TAB PO SCH (12:58)
[2017-12-07] MEDS ORDERED: HYDROcodone/Acetaminophen 10/325 mg Tablet PO SCH (13:00)
[2017-12-07] MEDS: Rivaroxaban 10 MG TAB PO SCH (18:38)
[2017-12-07] MEDS: Magnesium Oxide 400 MG TAB PO SCH (21:01)
[2017-12-07] MEDS: HumaLOG 300 UNITS/3 ML VIAL SC PRN (21:08)
[2017-12-08] MEDS: HYDROcodone/Acetaminophen 10/325 mg Tablet PO PRN ×2 (01:20→08:25)
[2017-12-08] MEDS: Acetaminophen 325 MG TAB PO PRN ×2 (01:21→08:24)
[2017-12-08] MEDS: Flecainide 50 MG TAB PO SCH (08:22)
[2017-12-08] MEDS: glipiZIDE 5 MG TAB PO SCH (08:22)
[2017-12-08] MEDS: Folic Acid 1 MG TAB PO SCH (08:23)
[2017-12-08] MEDS: Isosorbide Mononitrate 20 MG TAB PO SCH (08:23)
[2017-12-08] MEDS: Gabapentin 300 MG CAP PO SCH (08:23)
[2017-12-08] MEDS: Polyethylene Glycol 3350 17 GM Packet PO SCH (08:24)
[2017-12-08] MEDS: Valsartan 80 MG TAB PO SCH (08:24)
[2017-12-08 08:30] VITALS: BP 138/65; TEMP 96.8
--- NOTE | 2017-12-08 12:00 | DIS ---
FINAL DIAGNOSES: 1. Generalized weakness and deconditioning. A. Complicated by recent frequent falls secondary to a severe spinal stenosis at L3-L4 level for whi ch he underwent a complete laminectomy at the L3-L4 level on 11/24/2017. B. Marked improvement. Walking with his 4-wheeled walker independently. Transferring independently as of 12/08/2017. 2. Severe spinal stenosis of the L3-L4 level. A. Presenting with increased weakness in the lower extremities and frequent falls. B. Status post complete laminectomy at the L3-L4 level by Dr. Leander Abad, neurosurgeon, on . 1. Doing well. Rechecked by his neurosurgeon on 12/07/2017 showed excellent progress. [place] w ere removed by Dr. Abad. 3. Coronary artery disease. A. History of multiple stents. B. Last heart catheterization in 09/2014 showed patent stents to the RCA. C. Presently asymptomatic. 4. Diabetes type 2, controlled. A. Hemoglobin A1c of 6.9 on 10/09/2017. 5. Hypertension. 6. Generalized osteoarthritis. A. Status post left total knee replacement, 06/2015. B. Status post right total knee replacement, 11/2016. 7. Severe venous insufficiency of the lower extremity. A. Gradual improvement, but not resolved as of 12/01/2017. 8. Paroxysmal atrial fibrillation. A. On chronic anticoagulation. B. Rate controlled. 9. Status post pacemaker insertion for bradycardia. 10. Obesity. 11. Renal artery stenosis. 12. History of diastolic dysfunction. A. No evidence of acute congestive heart failure as of 12/08/2017. 13. Chronic kidney disease. 14. Obstructive sleep apnea. A. Intolerant of CPAP. He uses O2 at nighttime. PRESENT ILLNESS: Mr. Knowles is a 77-year-old white male who has a history of type 2 diabetes, hypert ension, coronary artery disease for which he has had stents and remains asymptomatic. He also has a diabetic neuropathy, paroxysmal atrial fibrillation and a pacemaker. 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 He has had multiple epidural steroid injections for his chronic pain. Eventually these no longer helped. Eventually he required long-acting morphine with short-acting morphine for breakthrough pain to control the chronic pain. Lately he had had increased weakness in his legs such that he was having multiple falls. He was hospitalized at [facility] on 11/17/2017 and investigation there showed that he had spondylosis of the spine with central spinal stenosis that was severe. This was particularly severe at L3-L4 level and there was also moderate neural foraminal stenosis bilateral at L3-4, L4-5 a nd L5-S1. His falls were felt to be secondary to the spinal stenosis and severe foraminal stenosis. Dr. Leander Abad, neurosurgeon, saw him and took him to surgery on 11/24/2017 where he underwen t complete laminectomy at the L3-4 level. The surgery went uneventfully. The patient was transferre d to [facility] for continued physical therapy due to his weakness and deconditioning on 2017. HOSPITAL COURSE: The patient was doing very well upon his arrival. His vital signs were all stable. The incision in the low back was very clean with no drainage, had jennifer present. He was placed o n his usual medication. He was no longer on the morphine, but receiving the hydrocodone 10/325 every 6 hours as needed, and this seemed to control his pain well. His legs felt much better and he was n ot having the weakness as they had been. Initially he had quite a bit of edema, but during the hospi talization this markedly improved. Physical Therapy worked with him and he made very excellent progr ess to where he was walking up to 200 feet 2 times a day using his rolling walker independently and w as transferring independently. He went back to see Dr. Leander Abad on 12/07/2017 and he was ve ry pleased with Mr. Knowles's progress. His skin jennifer were removed. The patient's pain has been w ell controlled. He had not had any more falls since his surgery and does not have the weakness like he did prior to the surgery. The patient's diabetes was under good control during the hospitalizatio n. The patient's condition was such it was felt like he could now be managed at home and he was disc harged on 12/08/2017. The patient plans on attending outpatient physical therapy at the [facility] at [facility] for continued conditioning and strengthening and gait training. DISPOSITION: DIET: Consistent carbohydrate diet. ACTIVITIES: Ambulate with the use of a rolling walker with 4 wheels. Physical therapy will be done 3 days a week at the [facility] at [facility]. Check glucose readings once or twice today . MEDICATIONS: Acetaminophen 325 mg 2 every 4 hours as needed, vitamin D3 1000 units daily, flecainide 100 mg b.i.d., folic acid 1 mg daily, furosemide 20 mg daily, gabapentin 600 mg t.i.d., glipizide 5 mg b.i.d., hydrocodone 1 every 6 hours as needed for pain, magnesium oxide 400 mg at bedtime, metopro lol succinate 100 mg daily, nitroglycerin 0.4 mg sublingual p.r.n. chest pain, MiraLax 17 grams in 8 ounce water daily, Ranexa 500 mg b.i.d., Xarelto 15 mg daily, Zanaflex 4 mg t.i.d. as needed, valsart an 40 mg daily. FOLLOW UP: The patient will be seen in followup in 2 weeks by myself. The patient will follow up wi th his appointments with Dr. Abad, his neurosurgeon. CODE STATUS: Full code.
== END 2017-12-08 10:58 | disposition home or self-care (01) | DRG 560 ==
LOC: MADMS 11-27 13:59
PROVIDERS: ADMIT Family Medicine; ATTEND Family Medicine
DX: Z47.89 Encounter for other orthopedic aftercare (principal); Z68.41 Body mass index [BMI] 40.0-44.9, adult; E11.9 Type 2 diabetes mellitus without complications; I25.10 Atherosclerotic heart disease of native coronary artery without angina pectoris; Z95.5 Presence of coronary angioplasty implant and graft; G47.33 Obstructive sleep apnea (adult) (pediatric); I12.9 Hypertensive chronic kidney disease with stage 1 through stage 4 chronic kidney disease, or unspecified chronic kidney disease; E11.22 Type 2 diabetes mellitus with diabetic chronic kidney disease; N18.9 Chronic kidney disease, unspecified; Z79.4 Long term (current) use of insulin; E11.42 Type 2 diabetes mellitus with diabetic polyneuropathy; Z95.0 Presence of cardiac pacemaker; I48.0 Paroxysmal atrial fibrillation; Z79.01 Long term (current) use of anticoagulants; G89.29 Other chronic pain; M47.896 Other spondylosis, lumbar region; Z98.1 Arthrodesis status; R29.6 Repeated falls; Z91.81 History of falling; Z96.653 Presence of artificial knee joint, bilateral; Z77.090 Contact with and (suspected) exposure to asbestos; Z99.81 Dependence on supplemental oxygen; E66.9 Obesity, unspecified; I70.1 Atherosclerosis of renal artery
CPT/HCPCS: 36415; 36416; 80053; 82565; 85014; 85018; 85025; 85049; G8978-GP-CL; G8979-GP-CJ; G8987-GO-CL; G8988-GO-CH

== ENCOUNTER 2017-12-20 07:03 | Outpatient (CLI) | payer MEDICARE ==
[2017-12-20 07:22] LABS: Hemoglobin 12.2 g/dL (14.0-18.0); Mean Corpuscular HGB CONC 32.7 g/dL (32.0-36.0); Mean Corpuscular Hemoglobin 30.8 pg (27.0-31.0); Mean Corpuscular Volume 94.1 fl (80.0-94.0); Mean Platelet Volume 5.6 fL (7.4-10.4); Platelet Count 203 thou/uL (130-400); RBC Distribution Width 13.9 % (11.5-14.5); Red Blood Cell (RBC) Count 3.95 mill/uL (4.70-6.10); White Blood Cell (WBC) Count 7.4 thou/uL (4.8-10.8)
[2017-12-20 07:35] LABS: Anion Gap 16 mmol/L (10-20); BUN (Urea Nitrogen) 32 mg/dL (8.4-25.7); Calc. Creatinine Clearance 0 mL/min (70-130); Calcium 8.9 mg/dL (7.8-10.44); Carbon Dioxide 28 mmol/L (23-31); Chloride 100 mmol/L (98-107); Estimated GFR-MDRD 30; Glucose 113 mg/dL (83-110); Potassium 4.4 mmol/L (3.5-5.1); Sodium 140 mmol/L (136-145)
== END 2017-12-20 07:04 | disposition home or self-care (01) ==
LOC: MADLABBHPM 07:03
PROVIDERS: ATTEND Family Medicine
DX: E11.22 Type 2 diabetes mellitus with diabetic chronic kidney disease (principal); N18.9 Chronic kidney disease, unspecified; D63.1 Anemia in chronic kidney disease
CPT/HCPCS: 36415; 80048; 85027

== ENCOUNTER 2018-01-18 07:12 | Outpatient (CLI) | payer MEDICARE ==
[2018-01-18 07:46] LABS: Anion Gap 15 mmol/L (10-20); BUN (Urea Nitrogen) 36 mg/dL (8.4-25.7); Calc. Creatinine Clearance 0 mL/min (70-130); Calcium 8.9 mg/dL (7.8-10.44); Carbon Dioxide 28 mmol/L (23-31); Chloride 101 mmol/L (98-107); Estimated GFR-MDRD 33; Glucose 138 mg/dL (83-110); Potassium 4.4 mmol/L (3.5-5.1); Sodium 140 mmol/L (136-145)
[2018-01-18 08:07] LABS: Hemoglobin 12.4 g/dL (14.0-18.0); Mean Corpuscular Hemoglobin 30.4 pg (27.0-31.0); Mean Corpuscular Volume 94.9 fL (78.0-98.0); Platelet Count 198 thou/uL (130-400); RBC Distribution Width 13.6 % (11.5-14.5); Red Blood Cell (RBC) Count 4.08 mill/uL (4.70-6.10); White Blood Cell (WBC) Count 6.3 thou/uL (4.8-10.8)
[2018-01-18 08:08] LABS: Lymphocytes 10 % (21-51); MDiff Complete? YES; Monocytes 16 % (0-10); Neutrophil 71 % (42-75); PLT Morphology Comment Appears Adequate; Reactive Lymphocytes 3 % (0-10)
== END 2018-01-18 07:13 | disposition home or self-care (01) ==
LOC: MADLAB 07:12
PROVIDERS: ATTEND Internal Medicine Nephrology
DX: N18.3 Chronic kidney disease, stage 3 (moderate) (principal)
CPT/HCPCS: 36415; 80048; 85025

== ENCOUNTER 2018-06-28 12:45 | Emergency (ER) | payer MEDICARE ==
[2018-06-28 13:51] LABS: #Eosinphils 0.2 thou/uL (0.0-0.7); #Lymphocytes 0.9 thou/uL (1.20-3.40); #Monocytes 1.6 thou/uL (0.11-0.59); #Neutrophils 10.2 thou/uL (1.40-6.50); %Basophils 0.4 % (0.0-1.0); %Eosinophils 1.6 % (0.0-10.0); %Lymphocytes 6.9 % (21.0-51.0); %Monocytes 12.1 % (0.0-10.0); %Neutrophils 79.1 % (42.0-75.0); Hemoglobin 13.1 g/dL (14.0-18.0); Mean Corpuscular HGB CONC 31.9 g/dL (32.0-36.0); Mean Corpuscular Hemoglobin 31.6 pg (27.0-31.0); Mean Corpuscular Volume 99.2 fL (78.0-98.0); Mean Platelet Volume 6.7 fL (7.4-10.4); Platelet Count 190 thou/uL (130-400); RBC Distribution Width 13.1 % (11.5-14.5); Red Blood Cell (RBC) Count 4.13 mill/uL (4.70-6.10); White Blood Cell (WBC) Count 12.9 thou/uL (4.8-10.8)
[2018-06-28 14:03] LABS: PTT 39.5 SEC (22.9-36.1)
[2018-06-28 14:07] LABS: Anion Gap 17 mmol/L (10-20); BUN (Urea Nitrogen) 37 mg/dL (8.4-25.7); Calc. Creatinine Clearance 0 mL/min (70-130); Calcium 8.8 mg/dL (7.8-10.44); Carbon Dioxide 26 mmol/L (23-31); Chloride 99 mmol/L (98-107); Estimated GFR-MDRD 31; Glucose 148 mg/dL (83-110); INR-International Normal Ratio 1.5; Potassium 4.7 mmol/L (3.5-5.1); Prothrombin Time 18.3 SEC (12.0-14.7); Sodium 137 mmol/L (136-145)
[2018-06-28] MEDS ORDERED: Adacel (T-DAP) 0.5 ML SYRINGE ONE (15:05)
--- NOTE | 2018-06-28 15:05 | RAD ---
LEFT HAND 3 VIEWS: Date: 06/28/18 HISTORY: Injury, left hand pain. FINDINGS/IMPRESSION: No acute fracture or dislocation is identified. A tiny radiopaque density is seen in the soft tissues of the volar aspect of the distal ring finger, suspicious for foreign body. POS: [facility]
--- NOTE | 2018-06-28 15:10 | CT ---
CT FACIAL BONES: Date: 06/28/18 Multiple axial tomograms obtained through the facial bones with multiplanar reconstruction. INDICATION: Fall with injury to face. FINDINGS: Review of the nasal bones show evidence of mild soft tissue swelling over the anterior facial bones. There is mild flattening of the nasal ridge and this could potentially represent subtle fracture. The re is no displaced nasal bone fracture identified. Recommend clinical correlation regarding injury at this site. The orbits appear intact. The lamina papyracea are intact. The maxillary sinuses, ethmoid sinuses, an d small frontal air cells are clear. Sphenoid air cells are clear. Zygoma intact. Maxilla appears intact. Mandible appears intact. There is abnormal opacification of the right mastoid and petrous air cells with opacification seen in the right middle ear cavity. Chronic mucosal process would be considered likely and recommend ENT ev aluation. IMPRESSION: 1. Evidence of soft tissue swelling over the nasal ridge and mild flattening of the nasal ridge, whi ch could represent nasal bone fracture. 2. No other evidence of facial bone fracture. 3. Abnormal opacification of the right mastoid air cells, petrous air cells, and right middle ear. R ecommend ENT consultation. POS: [facility]
--- NOTE | 2018-06-28 15:23 | CT ---
CT HEAD WITHOUT CONTRAST: Technique: Multiple contiguous axial images were obtained through the head without IV enhancement. Indications: Fall with injury to head. FINDINGS: Mild cortical volume loss. Ventricles have normal size and position. No evidence of intracranial hemo rrhage or contusion. No mass, edema, or infarct apparent. The paranasal sinuses appear clear. There i s diffuse opacification of the right petrous and right mastoid air cells suggesting diffuse mucosal e chris. There is also opacification involving the right middle ear. Recommend ENT consultation. This is probably chronic. There is no evidence of fracture. IMPRESSION: 1. No acute intracranial abnormality. 2. Abnormal opacification of the right petrous and mastoid air cells with abnormal opacification exte nding into the right middle ear cavity. Recommend elective ENT consultation. POS: [facility]
== END 2018-06-28 15:18 | disposition home or self-care (01) ==
LOC: MADERS 12:45
DX: S00.33XA Contusion of nose, initial encounter (principal); S60.222A Contusion of left hand, initial encounter; S00.81XA Abrasion of other part of head, initial encounter; E66.9 Obesity, unspecified; D64.9 Anemia, unspecified; I25.10 Atherosclerotic heart disease of native coronary artery without angina pectoris; I48.91 Unspecified atrial fibrillation; E11.22 Type 2 diabetes mellitus with diabetic chronic kidney disease; E78.5 Hyperlipidemia, unspecified; I12.9 Hypertensive chronic kidney disease with stage 1 through stage 4 chronic kidney disease, or unspecified chronic kidney disease; N18.3 Chronic kidney disease, stage 3 (moderate); J45.909 Unspecified asthma, uncomplicated; Z79.01 Long term (current) use of anticoagulants; W19.XXXA Unspecified fall, initial encounter
CPT/HCPCS: 70450; 70486; 80048; 85025; 85610; 85730; 90471; 90715

== ENCOUNTER 2018-10-14 13:07 | Emergency (ER) | payer MEDICARE ==
--- NOTE | 2018-10-14 13:52 | RAD ---
FRadiograph chest one view: 10/14/2018 at 1:44 PM HISTORY: 78-year-old male with cough and dyspnea COMPARISON: 10/31/2016 FINDINGS: Again noted is the cardiomegaly. There is a new finding of diffuse mild pulmonary predominantly inter stitial infiltrates suggestive of edema. There is pulmonary venous engorgement. There is a new left s ubclavian dual lead pacemaker. No pneumothorax. IMPRESSION: Congestive heart failure.
[2018-10-14 14:08] LABS: #Basophils 0.1 thou/uL (0.0-0.2); #Eosinphils 0.2 thou/uL (0.0-0.7); #Lymphocytes 0.8 thou/uL (1.20-3.40); #Monocytes 1.8 thou/uL (0.11-0.59); #Neutrophils 11.5 thou/uL (1.40-6.50); %Basophils 0.7 % (0.0-1.0); %Eosinophils 1.3 % (0.0-10.0); %Lymphocytes 5.3 % (21.0-51.0); %Monocytes 12.6 % (0.0-10.0); %Neutrophils 80.1 % (42.0-75.0); Hemoglobin 11.5 g/dL (14.0-18.0); Mean Corpuscular HGB CONC 32.3 g/dL (32.0-36.0); Mean Corpuscular Hemoglobin 30.8 pg (27.0-31.0); Mean Corpuscular Volume 95.5 fL (78.0-98.0); Mean Platelet Volume 5.4 fL (7.4-10.4); Platelet Count 273 thou/uL (130-400); RBC Distribution Width 12.5 % (11.5-14.5); Red Blood Cell (RBC) Count 3.72 mill/uL (4.70-6.10); White Blood Cell (WBC) Count 14.4 thou/uL (4.8-10.8)
[2018-10-14 14:28] LABS: ALT (SGPT) 10 U/L (8-55); AST (SGOT) 13 U/L (5-34); Albumin 3.3 g/dL (3.4-4.8); Alkaline Phosphatase 127 U/L (40-150); Anion Gap 17 mmol/L (10-20); BUN (Urea Nitrogen) 26 mg/dL (8.4-25.7); Bilirubin, Total 0.6 mg/dL (0.2-1.2); Calc. Creatinine Clearance 0 mL/min (70-130); Calcium 8.7 mg/dL (7.8-10.44); Carbon Dioxide 29 mmol/L (23-31); Chloride 97 mmol/L (98-107); Estimated GFR-MDRD 40; Globulin 3.5 g/dL (2.4-3.5); Glucose 307 mg/dL (83-110); Potassium 3.8 mmol/L (3.5-5.1); Protein, Total 6.8 g/dL (5.8-8.1); Sodium 139 mmol/L (136-145)
[2018-10-14] MEDS ORDERED: Furosemide 40 MG/4 ML VIAL ONE (14:29)
[2018-10-14] MEDS ORDERED: Nitroglycerin 2% Ointment 1 INCH/1 GM Packet ONE (14:29)
[2018-10-14] MEDS ORDERED: Insulin Regular 300 UNITS/3 ML VIAL ONE (15:44)
[2018-10-14] MEDS ORDERED: Losartan 25 MG TAB ONE (18:12)
== END 2018-10-14 18:35 | disposition short-term general hospital (02) ==
LOC: MADERS 13:07
DX: J81.0 Acute pulmonary edema (principal); I13.0 Hypertensive heart and chronic kidney disease with heart failure and stage 1 through stage 4 chronic kidney disease, or unspecified chronic kidney disease; I50.9 Heart failure, unspecified; E11.65 Type 2 diabetes mellitus with hyperglycemia; E78.5 Hyperlipidemia, unspecified; J45.909 Unspecified asthma, uncomplicated; E66.9 Obesity, unspecified; N18.3 Chronic kidney disease, stage 3 (moderate); I25.10 Atherosclerotic heart disease of native coronary artery without angina pectoris; I48.91 Unspecified atrial fibrillation; Z79.899 Other long term (current) drug therapy; Z79.01 Long term (current) use of anticoagulants
CPT/HCPCS: 36416; 71045; 80053; 83880; 84484; 85025; 93005; 94760; 96374; J1815; J1940

== ENCOUNTER 2019-07-09 16:16 | Emergency (ER) | payer MEDICARE ==
[~2019-07-09 16:16] MED LIST changes: +EPINEPHrine 1 MG/10 ML Abboject SYRINGE ONE; +Magnesium 5 GM/10 ML VIAL ONE
[2019-07-09 16:34] LABS: INR-International Normal Ratio 1.5; Prothrombin Time 17.8 SEC (12.0-14.7)
[2019-07-09 16:35] LABS: PTT 47.5 SEC (22.9-36.1)
[2019-07-09 16:38] LABS: #Basophils 0.2 thou/uL (0.0-0.2); #Eosinphils 0.3 thou/uL (0.0-0.7); #Lymphocytes 3.9 thou/uL (1.20-3.40); #Monocytes 1.2 thou/uL (0.11-0.59); #Neutrophils 12.7 thou/uL (1.40-6.50); %Basophils 0.8 % (0.0-1.0); %Eosinophils 1.4 % (0.0-10.0); %Lymphocytes 21.2 % (21.0-51.0); %Monocytes 6.6 % (0.0-10.0); %Neutrophils 69.9 % (42.0-75.0); Anisocytosis SLIGHT = 6-15 cells (100X) (0-5/hpf); Hemoglobin 15.3 g/dL (14.0-18.0); MDiff Complete? YES; Macrocytosis SLIGHT = 6-15 cells (100X) (0-5/hpf); Mean Corpuscular HGB CONC 29.2 g/dL (32.0-36.0); Mean Corpuscular Hemoglobin 30.8 pg (27.0-31.0); Mean Corpuscular Volume 105.3 fL (78.0-98.0); Mean Platelet Volume 9.5 fL (7.4-10.4); Platelet Count 201 thou/uL (130-400); Platelet Morphology Comment Appears Adequate; RBC Distribution Width 14.6 % (11.5-14.5); RBC Morphology Normal; Red Blood Cell (RBC) Count 4.99 mill/uL (4.70-6.10); White Blood Cell (WBC) Count 18.2 thou/uL (4.8-10.8)
--- NOTE | 2019-07-09 16:41 | RAD ---
EXAM: Single view of the chest HISTORY: CPR in progress. Cardiopulmonary arrest. COMPARISON: 10/14/2018 FINDINGS: Single view of the chest shows an enlarged but stable cardiomediastinal silhouette. An end otracheal tube is seen with its tip at the lower border of the clavicles. The pacemaker is unchanged in position. Poor aeration of both lungs is seen. IMPRESSION: Poor aeration of both lungs may represent pulmonary edema or multifocal pneumonia.
[2019-07-09 16:45] LABS: ALT (SGPT) 214 U/L (8-55); AST (SGOT) 207 U/L (5-34); Albumin 3.3 g/dL (3.4-4.8); Alkaline Phosphatase 157 U/L (40-110); Anion Gap 26 mmol/L (10-20); BUN (Urea Nitrogen) 20 mg/dL (8.4-25.7); Bilirubin, Total 0.6 mg/dL (0.2-1.2); Calc. Creatinine Clearance 0 mL/min (70-130); Calcium 8.3 mg/dL (7.8-10.44); Carbon Dioxide 15 mmol/L (23-31); Chloride 103 mmol/L (98-107); Estimated GFR-MDRD 31; Globulin 3.1 g/dL (2.4-3.5); Glucose 280 mg/dL (83-110); Potassium 4.7 mmol/L (3.5-5.1); Protein, Total 6.4 g/dL (5.8-8.1); Sodium 139 mmol/L (136-145)
[2019-07-09 16:47] LABS: CKMB 2.1 ng/mL (0-6.6); Troponin I 0.078 ng/mL (< 0.028)
== END 2019-07-09 21:00 | disposition expired ==
LOC: MADERS 16:16
DX: I46.9 Cardiac arrest, cause unspecified (principal); D64.9 Anemia, unspecified; I25.10 Atherosclerotic heart disease of native coronary artery without angina pectoris; I48.91 Unspecified atrial fibrillation; E78.5 Hyperlipidemia, unspecified; E78.00 Pure hypercholesterolemia, unspecified; I12.9 Hypertensive chronic kidney disease with stage 1 through stage 4 chronic kidney disease, or unspecified chronic kidney disease; E11.22 Type 2 diabetes mellitus with diabetic chronic kidney disease; N18.3 Chronic kidney disease, stage 3 (moderate)
CPT/HCPCS: 71045; 80053; 82553; 83880; 84484; 85025; 85610; 85730; 92950; 96374; 96375; J0171; J3475; J7050